=== PATIENT | female | born 1975 | race Caucasian/White ===

== ENCOUNTER 2021-06-19 08:34 | Emergency (ER) | payer MEDICAID, SELFPAY ==
[2021-06-19 08:35] VITALS: BP 99/70; PULSE 88; RESP 18; TEMP 35.8; O2SAT 99; BMI 25.0
--- NOTE | 2021-06-19 09:19 | EKG12_ITS ---
Test Reason : Blood Pressure : / mmHG Vent. Rate : 068 BPM Atrial Rate : 068 BPM P-R Int : 168 ms QRS Dur : 076 ms QT Int : 404 ms P-R-T Axes : 058 055 059 degrees QTc Int : 429 ms Normal sinus rhythm Normal ECG Confirmed by CLAIRE HEAD, YI ([id number]), editor managing director DANIEL HOLLEY ([id number]) on 06/20/2021 9:27:22 AM Referred By: SERAFIN Confirmed By:YI RANGEL MD
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
--- NOTE | 2021-06-19 09:24 | NURSING ---
NO OLD EKGS
[2021-06-19 09:38] LABS: Absolute Lymphocyte Count 2.77 X10^3/uL (0.83-4.51); Absolute Neutrophil Count 4.2 X10^3/uL (2.0-7.7); Basophil# 0.02 X10^3/uL; Basophil% 0.3 % (0-1); Eosinophil# 0.11 X10^3/uL; Eosinophils% 1.5 % (0-5); Hematocrit 43.9 % (37-47); Hemoglobin 14.6 g/dL (12.0-15.0); Lymphocyte # 2.77 X10^3/ul (0.83-4.51); Lymphocyte % 36.7 % (19-41); Mean Corp Hgb Conc 33.3 g/dL (32-36); Mean Corpuscular Hgb 31.1 pg (27.0-32.0); Mean Corpuscular Volume 93.6 fL (81-99); Mean Platelet Vol. 10.2 fl (6.2-12.0); Monocyte# 0.44 X10^3/uL; Monocyte% 5.8 % (0-10); NRBC Flagged by Analyzer 0 % (0-5); Neutrophil # 4.19 X10^3/uL (2.7-7.7); Neutrophil % 55.6 % (47-70); Platelet Count 260 K/mm3 (150-450); RBC Distribution Width CV 12.4 % (11.6-14.6); Red Blood Count 4.69 M/mm3 (4.2-5.4); White Blood Count 7.5 K/mm3 (4.4-11.0)
[2021-06-19 09:56] LABS: Anion Gap 9 (5-15); BUN 11 mg/dL (7-18); BUN/Creat Ratio 12.9 RATIO (10-20); Calcium,Total 9.3 mg/dL (8.5-10.1); Chloride 105 mmol/L (98-107); Creatinine, Serum 0.86 mg/dL (0.55-1.02); EST Glomerular Filtration Rate 76 mL/min (>60); Est Glom Filt Rate - Afr Amer 91 mL/min (>60); Estimated Creatinine Clearance 78.64 ml/min; Glucose 102 mg/dL (74-106); Potassium 3.9 mmol/L (3.5-5.1); Sodium Level 141 mmol/L (136-145)
[2021-06-19 10:03] LABS: Alcohol, Blood (Medical)-Serum < 3.0 mg/dL
[2021-06-19 10:06] LABS: Internal QC Validated? YES +Cl - CLEAR BKGD; Pregnancy, Serum, hCG Quali. NEGATIVE Negative
[2021-06-19 10:31] LABS: Amphetamine Urine VISTA NEGATIVE (<1000 ng/mL); Barbiturate Urine VISTA NEGATIVE (< 200 ng/mL); Benzodiazepine Urine VISTA POSITIVE (< 200 ng/mL); Cocaine Urine VISTA NEGATIVE (< 300 ng/mL); Ecstacy Urine VISTA NEGATIVE (< 500 ng/mL); Methadone Urine VISTA NEGATIVE (< 300 ng/mL); PCP Urine VISTA NEGATIVE (< 25 ng/mL); THC Urine VISTA POSITIVE (< 50 ng/mL); Vista UDS pH Range 6
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
[2021-06-19 12:18] VITALS: BP 94/67; PULSE 81; RESP 16; TEMP 36.6; O2SAT 96
--- NOTE | 2021-06-19 13:30 | NURSING ---
CALLED [facility], ETA IS 30 MIN
[2021-06-19 14:06] VITALS: RESP 15
--- NOTE | 2021-06-19 14:12 | CM.ED ---
SW Note SW called [facility] and made referral for patient. TATO faxed referral packet to [facility]. SW provided patient with phone number of [employer] for retirement counseling and support at discharge from [facility]. TATO updated patient that she was referred to [facility]. Patient asked if her daughter could visit as her daughter lives in [place]. SW received call from [facility]. Patient was accepted by Dr. Bradshaw and will go to Dual Diagnosis Unit. RN to RN is [phone].SW asked if there are visitors and [facility] staff said no. Patient also voiced concern as she had one outfit and SW spoke to [facility] and staff said that there were washers and dryers on each unit. TATO updated patient that she was accepted to [facility], no visitors but washers on the unit. TATO updated Marlene Greenwood RN and Aime RN. Aime will speak with unit staff about scheduling transportation. Aime called report. Plan: [facility] at discharge [facility]
== END 2021-06-19 14:31 ==
LOC: ED 10:07
PROVIDERS: Emergency Provider Emergency Medicine; PCP Pediatrics
DX: F32.A Depression, unspecified (principal); R45.851 Suicidal ideations; T42.4X2A Poisoning by benzodiazepines, intentional self-harm, initial encounter; Z87.891 Personal history of nicotine dependence; Z79.899 Other long term (current) drug therapy
CPT/HCPCS: 80048; 80307; 82077; 84703; 85025; 87426; 93005; 99285